=== PATIENT | male | born 1980 | race Two or more races ===

== ENCOUNTER 2022-08-11 13:06 | Inpatient (IN) | payer OTHER ==
[2022-08-11 13:23] VITALS: BMI 25.1
[2022-08-11] MEDS ORDERED: ACETAMINOPHEN 325 MG TABLET (FP) PO PRN ×2 (20:37)
[2022-08-11] MEDS ORDERED: NALOXONE HCL (KLOXXADO) 8 MG SPRAY NS PRN (20:37)
[2022-08-11] MEDS ORDERED: NICOTINE 10 MG CARTRIDGE (INHALER) IH PRN (20:37)
[2022-08-11] MEDS ORDERED: hydrOXYzine PAMOATE 25 MG CAPSULE (FP) PO PRN (20:37)
[2022-08-11] MEDS ORDERED: IBUPROFEN 400 MG TABLET (FP) PO PRN (20:37)
[2022-08-11] MEDS ORDERED: POLYETHYLENE GLYCOL (HEALTHYLAX) 3350 17 GM PACKET PO PRN (20:37)
[2022-08-11] MEDS ORDERED: ONDANSETRON *ODT* 4 MG TABLET SL PRN (20:37)
[2022-08-11] MEDS ORDERED: LOPERAMIDE HCL 2 MG CAPSULE PO PRN (20:37)
[2022-08-11] MEDS ORDERED: IBUPROFEN 600 MG TABLET (FP) PO PRN (20:37)
[2022-08-11] MEDS ORDERED: METHOCARBAMOL 500 MG TABLET PO PRN (20:37)
[2022-08-11] MEDS ORDERED: MAG HYDROX/AL HYDROX/SIMETH 30 ML UNIT-DOSE CUP PO PRN (20:37)
[2022-08-11] MEDS ORDERED: MAGNESIUM HYDROX 2400MG/30ML ORAL SUSPENSION 30 ML CUP PO PRN (20:37)
[2022-08-11] MEDS ORDERED: BISMUTH SUBSALICYLATE 524 MG/30 ML PO PRN (20:37)
[2022-08-11] MEDS ORDERED: BENZOCAINE/MENTHOL (CHLORASEPTIC ) LOZENGE MM PRN (20:37)
[2022-08-11] MEDS ORDERED: DICYCLOMINE HCL 10 MG CAPSULE PO PRN (20:37)
[2022-08-11] MEDS: THIAMINE HCL 100 MG TABLET (FP) PO SCH (22:53)
[2022-08-11] MEDS: MELATONIN 5 MG TABLETS PO SCH (22:53)
[2022-08-12 09:28] LABS: CALCIUM 8.9 mg/dL (8.5-10.1)
[2022-08-12 09:29] LABS: ALBUMIN 3.4 g/dl (3.4-5.0); BLOOD UREA NITROGEN 13.7 mg/dL (7-18)
[2022-08-12 09:32] LABS: CREATININE 0.9 mg/dL (0.55-1.3); HEMATOCRIT 40.6 % (35.4-49); HEMOGLOBIN 13.4 GM/dL (11.7-16.9); MCH 31.6 pg (25.7-33.7); MCHC 33.1 g/dl (32.0-35.9); MEAN CELL VOLUME 95.4 fl (80-96); MEAN PLT VOLUME 8.4 fl (7.5-11.1); PLATELET COUNT 219 10^3/uL (134-434); RBC 4.25 M/mm3 (4.00-5.60); RDW 13.2 % (11.9-15.9); WHITE BLOOD COUNT 5.3 K/mm3 (4.0-10.0)
[2022-08-12 09:33] LABS: BILIRUBIN,TOTAL 0.5 mg/dL (0.2-1); TOT PROT 6.5 g/dl (6.4-8.2)
[2022-08-12] MEDS: PRENATAL VITAMINS W/ FOLIC ACID TABLET (FP) PO SCH (10:17)
[2022-08-12] MEDS: THIAMINE HCL 100 MG TABLET (FP) PO SCH (22:12)
[2022-08-12] MEDS: MELATONIN 5 MG TABLETS PO SCH (22:12)
[2022-08-13] MEDS ORDERED: FAMOTIDINE 20 MG TABLET PO SCH (10:00)
[2022-08-13 10:26] VITALS: BP 115/72; PULSE 84; RESP 18; TEMP 97.3
[2022-08-13] MEDS: PRENATAL VITAMINS W/ FOLIC ACID TABLET (FP) PO SCH (10:38)
== END 2022-08-13 11:00 | disposition other institution (70) | DRG 775 ==
LOC: YASAS 13:06 → UNDOADMIN 20:04 → Y6N 20:04
PROVIDERS: ADMIT Allergy & Immunology; ATTEND Surgery
PROC: HZ2ZZZZ Detoxification Services for Substance Abuse Treatment (ICD-10-PCS; principal; 2022-08-11)
DX: F10.230 Alcohol dependence with withdrawal, uncomplicated (principal); F17.210 Nicotine dependence, cigarettes, uncomplicated; K21.9 Gastro-esophageal reflux disease without esophagitis; R07.9 Chest pain, unspecified; Z28.310 Unvaccinated for COVID-19; Z28.9 Immunization not carried out for unspecified reason; Z59.01 Sheltered homelessness
CPT/HCPCS: 0241U-QW; 36415; 71045-TC-FY; 80053; 80061; 83690; 83735; 84100; 84443; 84484; 85025; 85027; 85610; 85730; 86780; 87811; 93005; 93010; C9803-CS; G0378; U0003; U0005